=== PATIENT | female | born 1985 | race Caucasian/White ===

== ENCOUNTER 2017-08-12 03:08 | Emergency (ER) | payer SELFPAY ==
[2017-08-12 03:14] VITALS: BP 184/101; PULSE 80; RESP 18; TEMP 97.4; O2SAT 98
[2017-08-12] MEDS ORDERED: AMOX875T PO (03:48)
[2017-08-12] MEDS ORDERED: CORTI10A RIGHT EAR (03:48)
--- NOTE | 2017-08-12 03:51 | PD ---
HPI Chief Complaint: ENT Complaint Time Seen by Provider: 03:43 Travel History International Travel<30 days: No Contact w/Intl Traveler<30days: No Traveled to known affect area: No History of Present Illness HPI 32-year-old white female presents to emergency Department with complaints of right ear pain. She's been sick now for the past week. She has had runny nose , cough, congestion. Her right ear has come congested and she is having pain and having difficulty hearing. She has used llsg-ikx-esvuzhi eardrops without relief. She denies any fever or chills. No shortness of breath or wheezing. PFS Past Medical History Medical History: Denies Significant Hx Tetanus Vaccination: < 5 Years ?: Not LMP: 08/09/17 Past Surgical History Surgical History: No Previous Surgery Social History Alcohol Use: Yes (RARELY) Tobacco Use: No Substance Use: No Allergies-Medications (Allergen,Severity, Reaction): Coded Allergies: No Known Allergies (Verified Allergy, Mild, 08/12/17) Reported Meds & Prescriptions Reported Meds & Active Scripts Active Amoxicillin 875 Mg Tab 875 Mg PO BID 10 Days Lsybtqsb-Aattwjhvq-GL Otic Drops (Neomycin/Polymyxin/Hydrocortisone) 1 % Soln 4 Drop RIGHT EAR QID 7 Days Review of Systems Except as stated in HPI: all other systems reviewed are Neg Physical Exam Narrative GENERAL: Well-developed, well-nourished in no acute distress. Nontoxic appearing. HEAD: Normocephalic, atraumatic. EYES: Pupils equal round and reactive. Extraocular motions intact. No scleral icterus. No injection or drainage. ENT: The left TMs clear without erythema. The left external auditory canals clear. The right external auditory canals edematous and has some cerumen and exudate. The TM is erythematous but intact. Nose: clear . Posterior pharynx is pink and moist. No tonsillar edema or exudate. Uvula midline. Airway patent. NECK: Trachea midline.Supple, nontender, moves head freely. No central bony tenderness or spasm. CARDIOVASCULAR: Regular rate and rhythm without murmurs, gallops, or rubs. RESPIRATORY: Clear to auscultation. Breath sounds equal bilaterally. No wheezes , rales, or rhonchi. GASTROINTESTINAL: Abdomen soft, non-tender, nondistended. No hepato-splenomegaly , or palpable masses. No guarding. EXTREMITIES: No clubbing, cyanosis, or edema. No joint tenderness, effusion, or edema noted. BACK: Nontender without deformity or crepitance. No flank tenderness. Data Data Last Documented VS Vital Signs Date Time Temp Pulse Resp B/P (MAP) Pulse Ox O2 Delivery O2 Flow Rate FiO2 08/12/17 03:14 97.4 80 18 184/101 (128) 98 Orders Orders Ed Discharge Order (08/12/17 03:48) MDM Medical Decision Making Medical Screen Exam Complete: Yes Emergency Medical Condition: Yes Medical Record Reviewed: Yes Differential Diagnosis Differential diagnoses: URI, otitis media, otitis externa, serous otitis media Narrative Course This is right otitis media Patient given Amoxil 500 mg by mouth. Diagnosis Primary Impression: Right acute suppurative otitis media Patient Instructions: General Instructions Med/Other Pt SpecificInfo: Prescription(s) given Scripts Amoxicillin (Amoxicillin) 875 Mg Tab 875 MG PO BID for Infection for 10 Days, #20 TAB 0 Refills Prov: Angle Ackerman MD 08/12/17 Vfpkwlpa-Fhpfraurb-TX Otic Drops (Orunzclp-Fdxyouvfr-ZN Otic Drops) 1 % Soln 4 DROP RIGHT EAR QID for Infection for 7 Days, #1 BOTTLE 0 Refills Prov: Angle Ackerman MD 08/12/17 Disposition: 01 DISCHARGE HOME Condition: Stable Rush Casey Aug 12, 2017 03:51
[2017-08-12] MEDS ORDERED: AMOXICILLIN (TRIHYDRATE) 500 MG CAP PO ONE (04:00)
== END 2017-08-12 04:04 | disposition home or self-care (01) ==
LOC: NEPD 03:08
DX: H66.001 Acute suppurative otitis media without spontaneous rupture of ear drum, right ear (principal); R09.89 Other specified symptoms and signs involving the circulatory and respiratory systems; R05 Cough; R09.81 Nasal congestion
CPT/HCPCS: 99283